=== PATIENT | female | born 1950 | race Caucasian/White ===

== ENCOUNTER → 2017-02-03 | Outpatient (CLI) | payer BC ==
[~2017-02-03] MED LIST: ACETAMINOPHEN PO; ARIMIDEX1 MG PO; ATENOLOL PO; AUGMENTIN PO; DYAZIDE 37.5/251 CAP PO; EFFEXOR XR PO; LIPITOR PO; NIASPAN PO; PERCOCET PO; PHENERGAN PO; SIMVASTATIN40 MG; VIT D; VYTORIN PO; ZETIA PO
--- NOTE | ~2017-02-03 | CT57 ---
[facility] A Service of [facility] RADIOLOGY TEXT RESULTS PATIENT: ESCOBAR AREVALO LOCATION: [facility] : 50 UNIT #: [id number] AGE: [address]: Hussein Torrez MD SEX: F ORDER DR: [id number] [place], [place] [address] [id number] O MR#: [id number] Acc #: [id number] NAME: ESCOBAR AREVALO : 1950 SEX: F STUDY DATE/TIME: 02/03/2017 8:34 UNIT: [facility] ROOM: STUDY DESCRIPTION: CT Chest Wo Cont Attending Physician: Hussein Neal M.D. Referring Physician: Hussein Neal M.D. Ordering Physician: Hussein Neal M.D. Primary Care Physician: Tatyana Berg M.D. MEDICAL IMAGING REPORT This report is preliminary unless electronic signature is present EXAM CT of the chest without contrast INDICATION History of left-sided lung cancer. Observation of a malignant process. Routine followup. TECHNIQUE CT of the chest was performed without contrast. Coronal and sagittal reformatted images were obtained. This CT exam was performed with one or more of the following radiation dose reduction techniques: automatic exposure control, adjustment of mA and/or kV according to patient size, and iterative reconstruction. COMPARISON 02/13/2016 FINDINGS There has been a prior left lower lobectomy. There is stable scattered tiny micronodules within the left lung. There is stable scarring in the base of the left lung. There is stable scattered tiny micronodules in the right lung. There is no suspicious pulmonary nodule. There is no lymphadenopathy or pleural effusion. Limited imaging of the upper abdomen is unremarkable. The bone windows are unremarkable. IMPRESSION Postop left lower lobectomy. No evidence for recurrent or metastatic disease. Dictated by... Vincent Radford M.D. [facility] A Service of [facility] RADIOLOGY TEXT RESULTS PATIENT: ESCOBAR AREVALO LOCATION: [facility] : 50 UNIT #: [id number] AGE: [address]: Hussein Torrez MD SEX: F ORDER DR: THIS IS AN ELECTRONICALLY VERIFIED REPORT Vincent Radford M.D. at 02/03/2017 4:37 PM Danis TD: 02/03/2017 13:03 JOB #: [id number] MEDICAL IMAGING REPORT Page 1 of 1 COPY
== END | disposition home or self-care (01) ==
LOC: CCAT 08:07
DX: Z08 Encounter for follow-up examination after completed treatment for malignant neoplasm (principal); Z90.2 Acquired absence of lung [part of]; Z85.118 Personal history of other malignant neoplasm of bronchus and lung
CPT/HCPCS: 71250